=== PATIENT | male | born 1955 | race Caucasian/White ===

== ENCOUNTER 2019-04-19 06:20 | Day surgery (SDC) | payer OTHER ==
[2019-04-13 12:42] VITALS: BMI 38.0
[2019-04-19] MEDS ORDERED: TETRACAINE 0.5% OPHTH SOLN 2 ML BOTTLE ONE (07:05)
[2019-04-19] MEDS ORDERED: BUPIVACAINE HCL/PF 0.5% (5MG/ML) 10 ML VIAL ONE (07:05)
[2019-04-19] MEDS ORDERED: POVIDONE-IODINE 5% OPHTHALMIC PREP 30 ML SOLUTION ONE (07:05)
[2019-04-19] MEDS ORDERED: ERYTHROMYCIN 0.5% OPHTHALMIC OINTMENT 3.5 GM TUBE ONE (07:05)
[2019-04-19] MEDS ORDERED: LIDOCAINE 1%/EPI 1:100000 (20 ML MULTI DOSE VIAL) ONE (07:05)
[2019-04-19] MEDS ORDERED: ONDANSETRON 4 MG/2 ML VIAL IVPUSH PRN (07:06)
[2019-04-19] MEDS ORDERED: oxyCODONE HCL 5 MG TABLET PO PRN (07:06)
[2019-04-19] MEDS ORDERED: LACTATED RINGERS SOLUTION 1,000 ML IV SCH (07:15)
[2019-04-19] MEDS ORDERED: MIDAZOLAM HCL 2 MG/2 ML SINGLE DOSE VIAL ONE (07:28)
[2019-04-19] MEDS ORDERED: GLYCOPYRROLATE 0.2 MG/1 ML VIAL ONE (07:28)
[2019-04-19] MEDS ORDERED: PROPOFOL 20 ML ONE ×4 (07:28→08:19)
[2019-04-19] MEDS ORDERED: DEXAMETHASONE SOD PHOSPHATE 4 MG/1 ML VIAL ONE (08:03)
[2019-04-19 09:54] VITALS: TEMP 97.7
[2019-04-19 10:19] VITALS: BP 123/73; PULSE 64
--- NOTE | 2019-04-19 13:38 | OP ---
DATE OF OPERATION: 04/19/2019 PREOPERATIVE DIAGNOSIS: Large tumor, left upper lid, status post attempt at excision once before. POSTOPERATIVE DIAGNOSIS: Large tumor, left upper lid, status post attempt at excision once before. PROCEDURE: Exploration of left upper lid with dissection and excision of tumor en bloc, inclusive of base. SURGEON: Phan Saenz MD ANESTHESIA: Local with sedation. COMPLICATIONS: None. ESTIMATED BLOOD LOSS: 1-2 mL. OPERATIVE REPORT: Patient brought to the operating room, placed on the operating room table. Vital signs were monitored by Anesthesia. Tetracaine was placed in both eyes, and the crease was marked on the left upper lid. Patient was given intravenous sedation. Timeout was performed and then 2% Xylocaine, 1:100,000 epinephrine was injected subcutaneously in the lid crease in the left upper lid. Massage was applied for hemostasis. Patient was prepped and draped in the usual sterile fashion both eyes. The right eye was manually closed. An incision was made in the lid crease through skin and subcutaneous tissue. This was carried down through the muscle layer using a [place] needle, exposing the dome of the lesion, then meticulous dissection was carried out on the submuscular plane around the lesion, down to its perimeter which was on top of the tarsus. As this was a suspicious tarsal cyst, it was anticipated at some point nearing the base of the lesion, the lesion would rupture. Meticulous dissection along the plane of the tarsus was carried out until there was leakage from the cyst. That was cultured and irrigated with antibiotics, and then the cyst was removed, inclusive of its tarsal base which was submitted for pathologic study, leaving a small hole in the tarsus and laterally in the eyelid. The remainder of the Turner muscle and eyelid elevators were intact medially and laterally, and inferiorly there was a 4-mm bridge of tarsal plate intact along the margin. The wound was copiously irrigated to remove any of the contents of the cyst and for antibiotic purposes. After hemostasis was achieved, with [place] needle, the skin was closed with interrupted 6-0 plain suture with plastic technique. It should be noted that as the tarsal plate was approached, a corneal protector with ointment was placed in the eye to protect the further dissection onto the tarsal plate. Thus, the corneal protector was removed at the end of the case. Antibiotic irrigation was used again, and erythromycin ointment was placed on the sutures and in the eye, and the patient was taken to recovery room in stable condition. PHAN SAENZ M.D. [id number]
--- NOTE | 2019-04-21 11:11 | PATH ---
Surgical Pathology Report Patient Name: GHISLAINE NOVAK [facility]. Rec. #: [id number] /Age/Gender: 1955 (Age: 63) / M Account: [id number] Location: [facility] AMBULATORY Taken: 04/19/2019 Received: 04/19/2019 Reported: 04/21/2019 Physicians: Leno Paredes Specimen(s) Received TUMOR LEFT UPPER EYELID Clinical History Mass, left upper eyelid Final Diagnosis EYELID, LEFT UPPER, TUMOR, EXCISION: EPIDERMAL INCLUSION CYST. Electronically Signed Tana Bear M.D. Gross Description Received in formalin, labeled, "tumor left upper eyelid" a 1 x 0.7 cm unoriented portion of skin showing a 0.6 x 0.3 cm brown-espinoza slightly depressed lesion. The specimen is inked and bisected. Sectioning reveals a cystic interior. Entirely submitted in one cassette. AE/04/20/2019 ebram/04/20/2019
== END 2019-04-19 10:20 | disposition home or self-care (01) ==
LOC: FASU 06:20
PROVIDERS: ATTEND Ophthalmology
PROC: 08BP0ZX Excision of Left Upper Eyelid, Open Approach, Diagnostic (ICD-10-PCS; principal; 2019-04-19 07:57)
DX: H02.824 Cysts of left upper eyelid (principal)
CPT/HCPCS: 87070; 87186; 87205; 88304-TC; 94760